=== PATIENT | female | born 1990 | race African-American/Black ===

== ENCOUNTER 2018-12-22 04:26 | Emergency (ER) | payer OTHER ==
[~2018-12-22] VITALS: Ht 167.6 cm; Wt 61.0 kg
[2018-12-22] MEDS ORDERED: KETOROLAC 30MG/ML VIAL IM ONE (07:30)
[2018-12-22] MEDS ORDERED: DEXAMETHASONE 10 MG/ML VIAL IM ONE (07:30)
[2018-12-22] MEDS ORDERED: MORPHINE SULFATE 4 MG/ML CPJ (NOT FOR IM USE) IV ONE (10:30)
[2018-12-22] MEDS ORDERED: LORAZEPAM 2MG/ML CPJ IV ONE (10:30)
[2018-12-22] MEDS ORDERED: TETRACAINE/BENZOCAINE/BUTAMBEN 20 GM SPRAY MM ONE (10:45)
[2018-12-22] MEDS ORDERED: CLINDAMYCIN 600 MG in DEXTROSE 5% WATER 50 ML IV ONE (12:00)
[2018-12-22] MEDS ORDERED: CLINDAMYCIN 600MG PREMIX 50 ML IV NR (12:45)
[2018-12-22 12:47] LABS: HEMATOCRIT. 38.2 % (36.0-48.0); HEMOGLOBIN. 12.3 g/dL (12.0-16.0); MEAN PLATELET VOLUME 9.9 fl (7.4-10.4); PLATELET 192 x1000/uL (130-400); RED BLOOD CELL COUNT 4.39 mill/uL (4.2-5.4)
[2018-12-22 12:52] LABS: CHLORIDE 105 mEq/L (98-107)
[2018-12-22 13:02] LABS: PLATELET ESTIMATE NORMAL
[2018-12-22] MEDS ORDERED: IOHEXOL-300 100 ML BOTTLE ONE (14:08)
[2018-12-22] MEDS ORDERED: KETOROLAC 15MG/ML VIAL IV ONE (15:00)
[2018-12-22 17:03] VITALS: BP 131/82
== END 2018-12-22 17:41 | disposition short-term general hospital (02) ==
LOC: ER 04:26
DX: J36 Peritonsillar abscess (principal)
CPT/HCPCS: 36415; 70491; 80053; 85025; 87070; 87205; 87430; 96365; 96372; 96375; 99285; J1100; J1885; J2060; J2270; J3490; J7060; Q9967; Z7610